=== PATIENT | female | born 1935 | race Caucasian/White ===

== ENCOUNTER → 2016-05-05 | Outpatient (CLI) | payer MEDICARE, BC | LOC: MW.CHORTHO 08:00 | PROVIDERS: ATTEND Physician Assistant | DX: S53.125D Posterior dislocation of left ulnohumeral joint, subsequent encounter (principal); Z87.39 Personal history of other diseases of the musculoskeletal system and connective tissue | CPT/HCPCS: G0463 ==

== ENCOUNTER 2017-08-31 10:30 | Day surgery (SDC) | payer MEDICARE, BC ==
[~2017-08-31 10:30] MED LIST: Lactated Ringers 1,000 ML IV SCH; Midazolam 1 MG/ML 2 ML SDV ONE; Propofol 200 MG/20 ML SDV ONE; Sodium Chloride 0.9% 10 ML Syringe FLUSH PRN; Sodium Chloride 0.9% 2.5 ML Syringe FLUSH PRN; fentaNYL 100 MCG/2 ML SDV ONE
--- NOTE | 2017-08-31 11:05 | PCM.PREANE ---
Preanesthetic Assessment - Anesthesia/Transfusion/Family Hx Anesthesia History: Prior Anesthesia Without Reaction Family History of Anesthesia Reaction: No Transfusion History: No Prior Transfusion(s) Intubation History: Unknown - Review of Systems General: No Symptoms Pulmonary: No Symptoms Cardiovascular: No Symptoms Gastrointestinal: No Symptoms, Other (polyps 11 yers ago, father from colon cancer) Neurological: No Symptoms Other: Reports: None - Physical Assessment Height: 1.68 m Weight: 58.06 kg ASA Class: 2 Mental Status: Alert & Oriented x3 Airway Class: Mallampati = 2 Dentition: Reports: Normal Dentition Thyro-Mental Finger Breadths: 3 Mouth Opening Finger Breadths: 3 ROM/Head Extension: Full Lungs: Clear to Auscultation, Normal Respiratory Effort Cardiovascular: Regular Rate, Regular Rhythm - Allergies Allergies/Adverse Reactions: Allergies Allergy/AdvReac Type Severity Reaction Status Date / Time No Known Allergies Allergy Verified 08/28/17 12:36 - Blood Blood Available: No - Anesthesia Plan Pre-Op Medication Ordered: None - Acknowledgements Anesthesia Type Planned: MAC Pt an Appropriate Candidate for the Planned Anesthesia: Yes Alternatives and Risks of Anesthesia Discussed w Pt/Guardian: Yes Pt/Guardian Understands and Agrees with Anesthesia Plan: Yes PreAnesthesia Questionnaire HEENT History: Reports: Cataract, Glaucoma, Hard of Hearing, Other (See Below) Other HEENT History: uses reading glasses, has hearing aides but doesn't wear them Cardiovascular History: Reports: High Cholesterol, Hypertension Psychiatric History: Reports: Anxiety - Past Surgical History HEENT Surgical History: Reports: Cataract Surgery Female Surgical History: Reports: Hysterectomy Musculoskeletal Surgical History: Reports: Other (See Below) Other Musculoskeletal Surgeries/Procedures:: closed reduction of dislocated left elbow - SUBSTANCE USE Smoking Status *Q: Never Smoker Recreational Drug Use History: No - HOME MEDS Home Medications: Home Meds Ascorbate Calcium [Vitamin C] 500 mg PO DAILY 08/28/17 [History] Aspirin [Adult Low Dose Aspirin EC] 81 mg PO DAILY 08/28/17 [History] Calcium Carbonate/Vitamin D3 [Calcium 250+D] 1 tab PO DAILY 08/28/17 [History] Cholecalciferol (Vitamin D3) [Vitamin D3] 1,000 unit PO DAILY 08/28/17 [History] Dorzolamide HCl/Timolol Maleat [Cosopt Eye Drops] 1 drop EYERT BID 08/28/17 [ History] Fluticasone Propionate [Flonase Allergy Relief] 1 spray NASBOTH DAILY PRN [History] Latanoprost [Xalatan 0.005% Ophth Soln] 1 drop EYEBOTH BEDTIME 08/28/17 [History ] Multivitamin [One Daily Multivitamin] 1 tab PO DAILY 08/28/17 [History] Columbia-3/DHA/Epa/Fish Oil [[place] 3 500 Softgel] 1 cap PO DAILY 08/28/17 [History] Pravastatin Sodium [Pravachol] 40 mg PO DAILY 08/28/17 [History] Rutin/Hesp/Bioflav/C/Herb#196 [Bioflex] 1 tab PO DAILY 08/28/17 [History] amLODIPine Besylate [Norvasc] 2.5 mg PO QAM 08/28/17 [History] - CURRENT (IN HOUSE) MEDS Current Meds: Current Medications Lactated Ringer's (Ringers, Lactated) 1,000 mls @ 125 mls/hr IV ASDIRECTED PONCHO Sodium Chloride (Saline Flush) 10 ml FLUSH ASDIRECTED PRN PRN Reason: Keep Vein Open Sodium Chloride (Saline Flush) 2.5 ml FLUSH ASDIRECTED PRN PRN Reason: Keep Vein Open Sodium Chloride (Saline Flush) 10 ml FLUSH ASDIRECTED PRN PRN Reason: Keep Vein Open Sodium Chloride (Saline Flush) 2.5 ml FLUSH ASDIRECTED PRN PRN Reason: Keep Vein Open Discontinued Medications Fentanyl (Sublimaze) Confirm Administered Dose 100 mcg .ROUTE .STK-MED ONE Stop: 08/31/17 08:09 Midazolam HCl (Versed 1 Mg/Ml) Confirm Administered Dose 2 mg .ROUTE .STK-MED ONE Stop: 08/31/17 08:09 Propofol (Diprivan 20 Ml) Confirm Administered Dose 200 mg .ROUTE .STK-MED ONE Stop: 08/31/17 08:09
--- NOTE | 2017-08-31 11:37 | PCM.OPNOTE ---
- General Post-Op/Procedure Note Date of Surgery/Procedure: 08/31/17 Operative Procedure(s): Colonoscopy Findings: Diverticulosis grade 2 hemorrhoids Pre Op Diagnosis: Family history colon cancer Post-Op Diagnosis: Diverticulosis grade 2 hemorrhoids Anesthesia Technique: [facility] [place] Surgeon: Isa Almaguer Condition: Good
--- NOTE | 2017-08-31 12:20 | PCM48HPAN ---
Post Anesthesia Note - EVALUATION WITHIN 48HRS OF ANESTHETIC Vital Signs in Normal Range: Yes Patient Participated in Evaluation: Yes Respiratory Function Stable: Yes Airway Patent: Yes Cardiovascular Function Stable: Yes Hydration Status Stable: Yes Pain Control Satisfactory: Yes Nausea and Vomiting Control Satisfactory: Yes Mental Status Recovered: Yes Resp Rate: 7 - COMMENTS/OBSERVATIONS Free Text/Narrative:: no anesthesia problems
--- NOTE | 2017-08-31 20:11 | OR ---
SURGEON: IRMA ROUSSEAU MD DATE OF PROCEDURE: 08/31/2017 PREOPERATIVE DIAGNOSIS: Family history of colon cancer. POSTOPERATIVE DIAGNOSES: 1. Grade 2 hemorrhoids. 2. Diverticulosis. PROCEDURE PERFORMED: Screening colonoscopy. ANESTHESIA: MAC. INSTRUMENT USED: Olympus colonoscope. EXTENT OF EXAM: To the cecum. PREPARATION: Good. LIMITATIONS: None. INDICATION FOR EXAMINATION: The patient is an 82-year-old female with strong family history of colon cancer. Decision was made to proceed with a screening colonoscopy. We discussed the procedure, expected perioperative course, and risks including bleeding, infection, or damage to surrounding structures including perforation. The patient verbalized understanding and wishes to proceed. PROCEDURE IN DETAIL: The patient was brought to the endoscopy suite and placed in the left lateral decubitus position. A time-out was completed verifying the patient's name, age, date of , allergies, and procedure to be performed. Monitored anesthesia care was induced and continuous oxygen was provided via nasal cannula throughout the procedure. After adequate sedation was achieved, a digital rectal exam was performed. The patient was noted to have mildly enlarged hemorrhoids consistent with grade 2 hemorrhoids. A well lubricated colonoscope was inserted in the rectum and advanced under direct visualization to the level of the cecum. The patient was noted to have diffuse diverticulosis throughout the sigmoid colon. The cecum was identified by both visual and anatomic landmarks. A photograph was taken of the cecal cap; however, was unable to retroflex the scope within the cecum due to some tortuosity of the colon more proximally. The scope was then fully withdrawn while examining the color, texture, anatomy, and integrity of the mucosa from the cecum to the anal canal. The patient was not found to have any colon polyps or masses. The scope was brought into the rectum and retroflexed to allow visualization of the anal canal opening. This was consistent with the previously noted hemorrhoidal disease. The scope was then straightened out and removed from the patient. The cecum to anus time was 7 minutes. The patient tolerated the procedure well and was taken to PACU in stable condition. ENDOSCOPIC DIAGNOSES: 1. Grade 2 hemorrhoids. 2. Diverticulosis. RECOMMENDATIONS: Given the patient has a normal colonoscopy and is 82-year-old. I recommend that she follow up as needed for any further colonoscopies. NASIR / ADI /[id number]
== END 2017-08-31 12:35 | disposition home or self-care (01) ==
LOC: MW.SDS 10:30
PROVIDERS: ATTEND Surgery
DX: Z12.11 Encounter for screening for malignant neoplasm of colon (principal); K64.1 Second degree hemorrhoids; K57.30 Diverticulosis of large intestine without perforation or abscess without bleeding; I10 Essential (primary) hypertension; Z79.899 Other long term (current) drug therapy; Z86.010 Personal history of colon polyps; Z80.0 Family history of malignant neoplasm of digestive organs
CPT/HCPCS: G0105; J2250; J3010; J7120; J2704